=== PATIENT | male | born 1965 | race Caucasian/White ===

== ENCOUNTER → 2024-03-09 | Outpatient (CLI) | payer MEDICARE, MEDICAID ==
[2024-03-09 15:33] LABS: BASOPHILS % 3.4 % (0.0-2.0); EOSINOPHILS % 6.1 % (0.0-5.0); HEMATOCRIT. 39.8 % (42.0-52.0); HEMOGLOBIN. 12.9 g/dL (14.0-18.0); LYMPHOCYTES % 13.3 % (20.0-50.0); MEAN CORPUSCULAR HEMOGLOBIN 27.9 pg (28.0-32.0); MEAN CORPUSCULAR HGB CONC 32.3 g/dL (31.0-37.0); MEAN CORPUSCULAR VOLUME 86.4 fL (80.0-94.0); MEAN PLATELET VOLUME 8.8 fl (7.4-10.4); MONOCYTES % 8.7 % (2.0-8.0); NEUTROPHILS % 68.5 % (40.0-76.0); PLATELET 240 x1000/uL (130-400); RED BLOOD CELL COUNT 4.61 mill/uL (4.7-6.1); RED CELL DISTRIBUTION WIDTH 18.5 % (11.6-14.6); WHITE BLOOD COUNT 6.6 x1000/uL (4.5-11.0)
[2024-03-09 15:38] LABS: CHLORIDE 98 mEq/L (98-107); SODIUM 133 mEq/L (136-145)
[2024-03-09 15:39] LABS: CALCIUM 10.1 mg/dL (8.7-10.4); CARBON DIOXIDE 23 mEq/L (21-32)
[2024-03-09 15:44] LABS: GLUCOSE 88 mg/dL (70-105); UREA NITROGEN BLOOD 43 mg/dL (9-23)
[2024-03-09 15:46] LABS: ALANINE AMINOTRANSFERASE 9 IU/L (10-49); ALBUMIN 4.9 g/dL (3.2-4.8); ASPARTATE AMINOTRANSFERASE 12 IU/L (<34); BILIRUBIN TOTAL 0.2 mg/dL (0.1-1.0); PARTIAL THROMBOPLASTIN TIME 29.7 sec (23.4-31.0); PROTEIN TOTAL 8.6 g/dL (6.0-8.3); PROTHROMBIN TIME 11.6 sec (9.6-11.0)
[2024-03-09 16:03] LABS: CREATININE 7.8 mg/dL (0.6-1.3)
== END | disposition home or self-care (01) ==
LOC: LAB 14:51
PROVIDERS: ATTEND Nurse Practitioner Acute Care
DX: Z01.89 Encounter for other specified special examinations (principal)
CPT/HCPCS: 36415; 80053; 85025

== ENCOUNTER → 2024-03-25 | Day surgery (SDC) | payer MEDICARE, MEDICAID | END | disposition home or self-care (01) | LOC: RAD 09:46 | PROVIDERS: ATTEND Internal Medicine Critical Care Medicine | DX: J90 Pleural effusion, not elsewhere classified (principal); Z79.899 Other long term (current) drug therapy | CPT/HCPCS: 32555; 71046 ==

== ENCOUNTER → 2024-04-08 | Outpatient (CLI) | payer MEDICARE, MEDICAID ==
[~2024-04-08] MED LIST: PHENYLEPHRINE HCL 10MG/ML 1ML IV ONE
== END | disposition home or self-care (01) ==
LOC: RAD 11:26
PROVIDERS: ATTEND Specialist
DX: J90 Pleural effusion, not elsewhere classified (principal); I51.7 Cardiomegaly
CPT/HCPCS: 71046

== ENCOUNTER → 2024-04-20 | Day surgery (SDC) | payer MEDICARE, MEDICAID ==
[~2024-04-20] MED LIST changes: -PHENYLEPHRINE HCL 10MG/ML 1ML IV ONE; +SODIUM BICARBONATE 4% 2.4MEQ/5ML VIAL IV ONE
[2024-04-20 12:12] LABS: BODY FLUID MONOCYTES 1 %; BODY FLUID RBC 20 /cu mm (0-2000); BODY FLUID WBC 51 /cu mm (0-200)
== END | disposition home or self-care (01) ==
LOC: RAD 08:54
PROVIDERS: ATTEND Internal Medicine Critical Care Medicine
DX: J90 Pleural effusion, not elsewhere classified (principal); I51.7 Cardiomegaly; Z79.899 Other long term (current) drug therapy
CPT/HCPCS: 32555; 71045; 82945; 83615; 84157; 87070; 87205; 89050; 88108; J3490

== ENCOUNTER → 2024-05-04 | Outpatient (CLI) | payer MEDICARE, MEDICAID | END | disposition home or self-care (01) | LOC: RAD 12:53 | PROVIDERS: ATTEND Internal Medicine Critical Care Medicine | DX: J90 Pleural effusion, not elsewhere classified (principal); I51.7 Cardiomegaly | CPT/HCPCS: 71046 ==

== ENCOUNTER → 2024-07-06 | Outpatient (CLI) | payer MEDICARE, MEDICAID | END | disposition home or self-care (01) | LOC: RAD 15:29 | PROVIDERS: ATTEND Internal Medicine Critical Care Medicine | DX: J90 Pleural effusion, not elsewhere classified (principal) | CPT/HCPCS: 71046 ==

== ENCOUNTER → 2024-11-04 | Outpatient (CLI) | payer MEDICARE, MEDICAID | END | disposition home or self-care (01) | LOC: RAD 11:20 | PROVIDERS: ATTEND Internal Medicine Critical Care Medicine | DX: R91.8 Other nonspecific abnormal finding of lung field (principal); J90 Pleural effusion, not elsewhere classified | CPT/HCPCS: 71046 ==

== ENCOUNTER → 2024-12-09 | Outpatient (CLI) | payer MEDICARE, MEDICAID | END | disposition home or self-care (01) | LOC: RAD 13:43 | PROVIDERS: ATTEND Internal Medicine Critical Care Medicine | DX: J90 Pleural effusion, not elsewhere classified (principal); N18.6 End stage renal disease | CPT/HCPCS: 71046 ==

== ENCOUNTER 2024-12-30 18:30 | Inpatient (IN) | payer MEDICARE, MEDICAID ==
[2024-12-29 20:00] VITALS: BP 159/69; PULSE 78; RESP 18; TEMP 36.5
[~2024-12-30] VITALS: Ht 167.6 cm; Wt 58.5 kg
[~2024-12-30 18:30] MED LIST changes: +ATOR40TA70 MT; +ATRO2DRO6 RIGHTEYE; +CARV6.2548 MT; +DORZ1DRO7 OP; +EMPA10TA PO; +FERR325T6 MT; +FOLI0.8T53 MT; +HYDR-4009 PO; +HYDR25TA78 PO; +ISOS30TA91 PO; +NEOM7.5D8 RIGHTEYE; +NIFE-33 PO; +PRED5DRO22 RIGHTEYE; +SENN-289; +SEVE800T8 PO; -SODIUM BICARBONATE 4% 2.4MEQ/5ML VIAL IV ONE
[2024-12-30 20:00] VITALS: BP 159/69; PULSE 78; RESP 18; TEMP 36.4; TEMP 36.5; O2SAT 98
[2024-12-30] MEDS ORDERED: IPRATROPIUM/ALBUTEROL 0.5-3(2.5)MG/3ML NEB HHN PRN (20:15)
[2024-12-30] MEDS ORDERED: ONDANSETRON HCL 4MG TABLET PO PRN (20:15)
[2024-12-30] MEDS ORDERED: DOCUSATE SODIUM 100MG CAPSULE PO PRN (20:15)
[2024-12-30] MEDS: ACETAMINOPHEN 500MG TABLET PO SCH (21:54)
[2024-12-30] MEDS: ISOSORBIDE MONONITRATE 30MG TABLET SR 24HR PO SCH (21:54)
[2024-12-30] MEDS: ATORVASTATIN CALCIUM 40MG TABLET PO SCH (21:55)
[2024-12-30] MEDS: CARVEDILOL 6.25 MG TABLET PO SCH (21:55)
[2024-12-30] MEDS: BLOOD SUGAR DIAGNOSTIC STRIP TEST SCH (21:56)
[2024-12-30] MEDS: NIFEDIPINE XL 30MG TAB PO SCH (21:56)
[2024-12-30] MEDS ORDERED: ACETAMINOPHEN 500MG TABLET PO ONE (22:00)
[2024-12-30] MEDS: INSULIN LISPRO 100 UNITS/ML SUBCUT SCH (22:40)
[2024-12-30 23:40] VITALS: BP 180/85; PULSE 74
[2024-12-30] MEDS: HYDRALAZINE HCL 25MG TABLET PO SCH (23:44)
[2024-12-31] VITALS (8 sets, daily range): BP systolic 103–141; BP diastolic 51–67; PULSE 65–75; RESP 15–20; TEMP 35.9–37.72524; O2SAT 97–99
[2024-12-31 06:53] LABS: CHLORIDE 94 mEq/L (98-107); POTASSIUM 5.2 mEq/L (3.5-5.1); SODIUM 130 mEq/L (136-145)
[2024-12-31 06:54] LABS: CALCIUM 8.9 mg/dL (8.7-10.4); CARBON DIOXIDE 28 mEq/L (21-32)
[2024-12-31 06:59] LABS: GLUCOSE 239 mg/dL (70-105); UREA NITROGEN BLOOD 36 mg/dL (9-23)
[2024-12-31 07:01] LABS: ALANINE AMINOTRANSFERASE < 7 IU/L (10-49); ALBUMIN 3.4 g/dL (3.2-4.8); ASPARTATE AMINOTRANSFERASE 14 IU/L (<34); BILIRUBIN TOTAL 0.2 mg/dL (0.1-1.0)
[2024-12-31 07:15] LABS: CREATININE 5.7 mg/dL (0.6-1.3)
[2024-12-31 07:27] LABS: BASOPHILS % 1.7 % (0.0-2.0); DIFFERENTIAL COMMENT 0; EOSINOPHILS % 3.9 % (0.0-5.0); LYMPHOCYTES % 13.3 % (20.0-50.0); MEAN CORPUSCULAR HEMOGLOBIN 27.6 pg (28.0-32.0); MEAN CORPUSCULAR VOLUME 83.6 fL (80.0-94.0); MEAN PLATELET VOLUME 8.2 fl (7.4-10.4); MONOCYTES % 11.6 % (2.0-8.0); NEUTROPHILS % 69.5 % (40.0-76.0); PLATELET 343 x1000/uL (130-400); RED BLOOD CELL COUNT 2.42 mill/uL (4.7-6.1); WHITE BLOOD COUNT 8.7 x1000/uL (4.5-11.0)
[2024-12-31 07:35] LABS: HEMOGLOBIN. 6.7 g/dL (14.0-18.0)
[2024-12-31 07:36] LABS: HEMATOCRIT. 20.2 % (42.0-52.0)
[2024-12-31] MEDS: SEVELAMER CARBONATE 800 MG TABLET PO SCH (08:38)
[2024-12-31] MEDS: FOLIC ACID/VITAMIN B COMP W-C TABLET PO SCH (08:38)
[2024-12-31] MEDS: EMPAGLIFLOZIN 10MG TABLET PO SCH (08:39)
[2024-12-31] MEDS: POLYETHYLENE GLYCOL 3350 (17GM) 1 DOSE PACK PO SCH (08:40)
[2024-12-31] MEDS: LIDOCAINE 5% PATCH TOP SCH (08:41)
[2024-12-31] MEDS: SODIUM ZIRCONIUM CYCLOSILICATE 10GM/PACKET PO NR (10:22)
[2024-12-31 12:35] LABS: HEPATITIS B SURFACE ANTIGEN NEGATIVE (Negative)
[2024-12-31 12:37] LABS: HEPATITIS A AB IGM NEGATIVE (Negative); HEPATITIS B CORE AB IGM NEGATIVE (Negative)
[2024-12-31 12:38] LABS: HEPATITIS C AB NON REACTIVE (Neg) (Negative)
[2024-12-31 20:58] LABS: EOSINOPHILS % 3.8 % (0.0-5.0); HEMATOCRIT. 24.2 % (42.0-52.0); HEMOGLOBIN. 8.1 g/dL (14.0-18.0); LYMPHOCYTES % 11.9 % (20.0-50.0); MEAN CORPUSCULAR HEMOGLOBIN 28.6 pg (28.0-32.0); MEAN CORPUSCULAR HGB CONC 33.4 g/dL (31.0-37.0); MEAN CORPUSCULAR VOLUME 85.7 fL (80.0-94.0); MEAN PLATELET VOLUME 8.3 fl (7.4-10.4); MONOCYTES % 9.6 % (2.0-8.0); NEUTROPHILS % 72.7 % (40.0-76.0); PLATELET 344 x1000/uL (130-400); RED BLOOD CELL COUNT 2.82 mill/uL (4.7-6.1); RED CELL DISTRIBUTION WIDTH 17.6 % (11.6-14.6); WHITE BLOOD COUNT 10.5 x1000/uL (4.5-11.0)
[2024-12-31] MEDS ORDERED: EPOETIN ALFA-EPBX 4,000 UNIT/ML VIAL SUBCUT SCH (21:00)
[2024-12-31] MEDS: EPOETIN ALFA 4000UNITS/ML VIAL SUBCUT SCH (21:36)
[2025-01-01] VITALS (10 sets, daily range): BP systolic 182–221; BP diastolic 78–114; PULSE 70–80; RESP 18–20; TEMP 36.114–36.7; O2SAT 95
[2025-01-01 08:00] LABS: BASOPHILS % 1.6 % (0.0-2.0); EOSINOPHILS % 4.7 % (0.0-5.0); HEMATOCRIT. 25.1 % (42.0-52.0); HEMOGLOBIN. 8.5 g/dL (14.0-18.0); LYMPHOCYTES % 12.8 % (20.0-50.0); MEAN CORPUSCULAR HEMOGLOBIN 28.5 pg (28.0-32.0); MEAN CORPUSCULAR HGB CONC 33.8 g/dL (31.0-37.0); MEAN CORPUSCULAR VOLUME 84.3 fL (80.0-94.0); MEAN PLATELET VOLUME 8.1 fl (7.4-10.4); MONOCYTES % 10.9 % (2.0-8.0); PLATELET 335 x1000/uL (130-400); RED BLOOD CELL COUNT 2.97 mill/uL (4.7-6.1); RED CELL DISTRIBUTION WIDTH 17.6 % (11.6-14.6); WHITE BLOOD COUNT 8.9 x1000/uL (4.5-11.0)
[2025-01-01 08:08] LABS: CARBON DIOXIDE 27 mEq/L (21-32); CHLORIDE 93 mEq/L (98-107); POTASSIUM 5.8 mEq/L (3.5-5.1); SODIUM 128 mEq/L (136-145)
[2025-01-01 08:09] LABS: CALCIUM 9.1 mg/dL (8.7-10.4)
[2025-01-01] MEDS: CLONIDINE 0.1MG TABLET PO PRN (08:09)
[2025-01-01 08:13] LABS: GLUCOSE 148 mg/dL (70-105)
[2025-01-01 08:14] LABS: UREA NITROGEN BLOOD 51 mg/dL (9-23)
[2025-01-01 08:16] LABS: PHOSPHORUS 3.6 mg/dL (2.5-4.9)
[2025-01-01 08:28] LABS: CREATININE 7.4 mg/dL (0.6-1.3)
[2025-01-01] MEDS: AMLODIPINE 5MG TABLET PO SCH (09:09)
[2025-01-01] MEDS: LABETALOL HCL 100MG TABLET PO NR (09:09)
[2025-01-01] MEDS: SODIUM ZIRCONIUM CYCLOSILICATE 10GM/PACKET PO NR (10:13)
[2025-01-01] MEDS ORDERED: HYDRALAZINE 20MG/ML VIAL IV ONE (11:00)
[2025-01-01] MEDS: HYDRALAZINE 10 MG in SODIUM CHLORIDE 0.9% 49.5 ML IV NR (12:00)
[2025-01-01 18:43] LABS: BASOPHILS % 1.9 % (0.0-2.0); EOSINOPHILS % 4.3 % (0.0-5.0); HEMATOCRIT. 23.2 % (42.0-52.0); HEMOGLOBIN. 7.7 g/dL (14.0-18.0); LYMPHOCYTES % 11.4 % (20.0-50.0); MEAN CORPUSCULAR HEMOGLOBIN 28.6 pg (28.0-32.0); MEAN CORPUSCULAR HGB CONC 33.4 g/dL (31.0-37.0); MEAN CORPUSCULAR VOLUME 85.6 fL (80.0-94.0); MONOCYTES % 9.4 % (2.0-8.0); PLATELET 337 x1000/uL (130-400); RED CELL DISTRIBUTION WIDTH 17.7 % (11.6-14.6); WHITE BLOOD COUNT 8.9 x1000/uL (4.5-11.0)
[2025-01-01 18:52] LABS: POTASSIUM 4.1 mEq/L (3.5-5.1)
[2025-01-01 18:53] LABS: CALCIUM 8.7 mg/dL (8.7-10.4)
[2025-01-01 19:15] LABS: CREATININE 5.2 mg/dL (0.6-1.3)
[2025-01-01] MEDS: CARVEDILOL 6.25 MG TABLET PO SCH (21:37)
[2025-01-01] MEDS: HYDRALAZINE HCL 50MG TABLET PO SCH (21:37)
[2025-01-02 01:30] VITALS: BP 154/60; PULSE 74
[2025-01-02 08:00] VITALS: BP 182/69; PULSE 74; RESP 18; TEMP 36.4; O2SAT 96
[2025-01-02] MEDS: NIFEDIPINE XL 30MG TAB PO SCH (08:42)
[2025-01-02] MEDS: METHOCARBAMOL 500MG TABLET PO SCH (14:54)
[2025-01-02 20:00] VITALS: BP 103/46; PULSE 65; RESP 18; TEMP 36.8; O2SAT 95
[2025-01-03 08:00] VITALS: BP 162/64; PULSE 72; RESP 19; TEMP 36.8; O2SAT 96
[2025-01-03 13:00] VITALS: BP_SYST 116; BP_SYST 118; BP_DIAS 56; BP_DIAS 58; TEMP 36.4; O2SAT 97
[2025-01-03 20:00] VITALS: BP 120/63; PULSE 68; RESP 19; TEMP 36.9; O2SAT 100
[2025-01-04] VITALS (11 sets, daily range): BP systolic 97–198; BP diastolic 42–89; PULSE 66–72; RESP 16–18; TEMP 36.6–36.8; O2SAT 94–95
[2025-01-04] MEDS: DEXTROSE 50% WATER 50ML SYRINGE IV PRN (00:10)
[2025-01-04 07:54] LABS: CALCIUM 8.9 mg/dL (8.7-10.4)
[2025-01-04 08:06] LABS: HEMATOCRIT. 22.2 % (42.0-52.0); HEMOGLOBIN. 7.3 g/dL (14.0-18.0); MEAN CORPUSCULAR HEMOGLOBIN 28.2 pg (28.0-32.0); MEAN CORPUSCULAR HGB CONC 32.9 g/dL (31.0-37.0); MEAN CORPUSCULAR VOLUME 85.7 fL (80.0-94.0); PLATELET 291 x1000/uL (130-400); RED BLOOD CELL COUNT 2.59 mill/uL (4.7-6.1); RED CELL DISTRIBUTION WIDTH 18.3 % (11.6-14.6); WHITE BLOOD COUNT 12.5 x1000/uL (4.5-11.0)
[2025-01-04 08:20] LABS: POTASSIUM 6.2 mEq/L (3.5-5.1)
[2025-01-04 08:28] LABS: DIFFERENTIAL COMMENT 1
[2025-01-04 10:58] LABS: ANISOCYTOSIS 2+; MICROCYTOSIS 1+; PLATELET ESTIMATE NORMAL; ROULEAUX 1+
[2025-01-04] MEDS: SODIUM BICARBONATE 8.4% 50MEQ/50ML SYR IV NR (12:38)
[2025-01-04] MEDS: DEXTROSE 50% WATER 50ML SYRINGE IV NR (12:42)
[2025-01-04] MEDS: INSULIN REGULAR (HUMULIN R) 1000UNITS/10ML VIAL IV NR (12:58)
[2025-01-04] MEDS: CALCIUM GLUCONATE 1GM PREMIX 50 ML IV NR (13:06)
[2025-01-04 16:14] LABS: POTASSIUM 5.6 mEq/L (3.5-5.1)
[2025-01-04 22:49] LABS: POTASSIUM 4.4 mEq/L (3.5-5.1)
[2025-01-04 22:59] LABS: CREATININE 6.6 mg/dL (0.6-1.3)
[2025-01-05 08:00] VITALS: BP 169/64; PULSE 75; RESP 18; TEMP 36.4; O2SAT 95
[2025-01-05 20:00] VITALS: BP 115/71; PULSE 67; RESP 18; TEMP 36.9; O2SAT 95
[2025-01-06 08:00] VITALS: BP 177/63; PULSE 79; RESP 22; TEMP 38.7; O2SAT 78
[2025-01-06 08:49] VITALS: TEMP 101.7
[2025-01-06] MEDS ORDERED: PIPERACILLIN/TAZO 3.375G/50ML IV SCH (10:00)
[2025-01-06] MEDS: IPRATROPIUM/ALBUTEROL 0.5-3(2.5)MG/3ML NEB HHN SCH (11:15)
[2025-01-06] MEDS: VANCOMYCIN 1.5GM PMX (XELLIA) 300 ML IV SCH (11:27)
[2025-01-06 12:21] LABS: BG BASE EXCESS 2.2 mmol/L (-2.0-3.0); BG CARBOXYHEMOGLOBIN 1.3 % (0.5-1.5); BG DEOXYHEMOGLOBIN 13.5 % (0.0-5.0); BG FRACTION INSPIRED OXYGEN 44; BG METHEMOGLOBIN 0.3 % (0.5-1.5); BG OXYGEN SATURATION 86.3 % (94.0-98.0); BG OXYHEMOGLOBIN 84.9 % (94.0-98.0); BG PCO2 37.2 mmHg (35.0-48.0); BG PH 7.463 (7.350-7.450); BG PO2 49.5 mmHg (83.0-108.0); BG SAMPLE SITE RIGHT BRACHIAL; BG TOTAL HEMOGLOBIN 8.7 g/dL (13.5-17.5); BG VENT MODE NASAL CANNULA
[2025-01-06] MEDS ORDERED: FUROSEMIDE 40MG/4ML VIAL IVP SCH (13:00)
[2025-01-06 13:09] LABS: HEMATOCRIT. 21.4 % (42.0-52.0); MEAN CORPUSCULAR HEMOGLOBIN 27.6 pg (28.0-32.0); MEAN CORPUSCULAR HGB CONC 32.2 g/dL (31.0-37.0); MEAN CORPUSCULAR VOLUME 85.9 fL (80.0-94.0); PLATELET 303 x1000/uL (130-400); RED BLOOD CELL COUNT 2.49 mill/uL (4.7-6.1); WHITE BLOOD COUNT 13.3 x1000/uL (4.5-11.0)
[2025-01-06 13:15] LABS: DIFFERENTIAL COMMENT 1; HEMOGLOBIN. 6.9 g/dL (14.0-18.0)
[2025-01-06 13:20] LABS: POTASSIUM 6.1 mEq/L (3.5-5.1)
[2025-01-06 13:34] LABS: CREATININE 8.8 mg/dL (0.6-1.3)
[2025-01-06 13:58] VITALS: BP 122/66; PULSE 60; O2SAT 99
[2025-01-06] MEDS ORDERED: PIPERACILLIN/TAZO 3.375G/50ML 50 ML IV SCH (14:00)
[2025-01-06 14:08] LABS: PLATELET ESTIMATE NORMAL
[2025-01-06 14:09] LABS: ANISOCYTOSIS 1+
[2025-01-06 14:35] LABS: CLARITY URINE CLEAR (CLEAR); COLOR URINE YELLOW (YELLOW); GLUCOSE URINE 2+ (NEGATIVE); KETONES URINE NEGATIVE (NEGATIVE); LEUKOCYTE ESTERASE URINE NEGATIVE (NEGATIVE); NITRITE URINE NEGATIVE (NEGATIVE); OCCULT BLOOD URINE NEGATIVE (NEGATIVE); PH URINE 8.5 (4.5-8.0); PROTEIN URINE 2+ (NEGATIVE); SPECIFIC GRAVITY URINE 1.013 (1.005-1.030); UROBILINOGEN URINE 0.2 E.U./dL (0.2-1.0)
[2025-01-06] MEDS ORDERED: AZITHROMYCIN 500MG/250ML 250 ML IV SCH (15:00)
[2025-01-06 15:09] LABS: BACTERIA URINE NONE SEEN; RBC URINE NONE SEEN /hpf (0-2); SQUAMOUS EPITHELIAL CELL URINE NONE SEEN /lpf (RARE/1+); WBC URINE 0-2 /hpf (0-2)
[2025-01-07] MEDS ORDERED: ISOSORBIDE MONONITRATE 30MG TABLET SR 24HR PO SCH (09:00)
== END 2025-01-06 14:17 | disposition short-term general hospital (02) | DRG 682 ==
PROVIDERS: ADMIT Psychiatry & Neurology Neurology; ATTEND Family Medicine Adult Medicine
PROC: 5A1D70Z Performance of Urinary Filtration, Intermittent, Less than 6 Hours Per Day (ICD-10-PCS; principal; 2025-01-01)
PROC: 5A1D70Z Performance of Urinary Filtration, Intermittent, Less than 6 Hours Per Day (ICD-10-PCS; 2025-01-04)
PROC: 5A1D70Z Performance of Urinary Filtration, Intermittent, Less than 6 Hours Per Day (ICD-10-PCS; 2025-01-06)
DX: I12.0 Hypertensive chronic kidney disease with stage 5 chronic kidney disease or end stage renal disease (principal); J96.01 Acute respiratory failure with hypoxia; N18.6 End stage renal disease; J91.8 Pleural effusion in other conditions classified elsewhere; E87.1 Hypo-osmolality and hyponatremia; E87.70 Fluid overload, unspecified; D64.9 Anemia, unspecified; E11.22 Type 2 diabetes mellitus with diabetic chronic kidney disease; E11.42 Type 2 diabetes mellitus with diabetic polyneuropathy; E78.00 Pure hypercholesterolemia, unspecified; I25.10 Atherosclerotic heart disease of native coronary artery without angina pectoris; H54.61 Unqualified visual loss, right eye, normal vision left eye; Z60.3 Acculturation difficulty; E87.5 Hyperkalemia; F10.10 Alcohol abuse, uncomplicated; K59.00 Constipation, unspecified; R53.81 Other malaise; I95.1 Orthostatic hypotension; Z79.84 Long term (current) use of oral hypoglycemic drugs; Z79.899 Other long term (current) drug therapy; Z82.49 Family history of ischemic heart disease and other diseases of the circulatory system; Z83.3 Family history of diabetes mellitus; Z86.73 Personal history of transient ischemic attack (TIA), and cerebral infarction without residual deficits; Z91.81 History of falling; Z99.2 Dependence on renal dialysis
CPT/HCPCS: 36415; 36600; 71045; 80048; 80053; 81003; 82375; 82805; 82962; 83735; 84100; 84132; 84145; 85025; 86705; 86709; 86850; 86900; 86920; 87340; 90935; 92523; 92610; 97110; 97116; 97163; 97166; 97530; 97535; A4606; J0360; J0456; J0610; J0885; J1815; J3370; J3490; P9016

== ENCOUNTER → 2025-06-14 | Outpatient (CLI) | payer MEDICARE, MEDICAID ==
[~2025-06-14] MED LIST changes: -ATRO2DRO6 RIGHTEYE; +AZIT500T8 PO; +DEXTL PO; -HYDR-4009 PO; -HYDR25TA78 PO; +HYDR50TA39 PO; -NEOM7.5D8 RIGHTEYE
== END | disposition home or self-care (01) ==
LOC: RAD 13:46
PROVIDERS: ATTEND Specialist
DX: J90 Pleural effusion, not elsewhere classified (principal); J94.8 Other specified pleural conditions
CPT/HCPCS: 71046